=== PATIENT | female | born 1970 | race Caucasian/White ===

== ENCOUNTER 2016-07-21 10:16 | Inpatient (IN) | payer MEDICAID ==
[2016-07-21 10:53] LABS: % BASOPHILS 0.2 % (0.0-2.0); % EOSINOPHILS 6.9 % (0.0-5.0); % MONOCYTES 10.3 % (2.0-10.0); % NEUTROPHILS 69.6 % (40.0-80.0); HEMATOCRIT 36.6 % (35.0-45.0); HEMOGLOBIN 12.2 gm/dL (11.7-15.5); MEAN CELL VOLUME 79.7 fl (81-100); MEAN CORPUSCULAR HEMOGLOBIN 26.6 pg (27.0-31.0); MEAN CORPUSCULAR HGB CONC 33.3 pg (28.0-36.0); MEAN PLATELET VOLUME 10.7 fl; NEUTROPHILE ABSOLUTE 7.7 Th/cmm (1.8-8.0); PLATELET COUNT 175 Th/cmm (150-400); RED BLOOD COUNT 4.59 Mil/cmm (3.80-5.10); RED CELL DISTRIBUTION WIDTH 14.2 % (11.5-20.0)
[2016-07-21 11:08] LABS: ALB/GLOB RATIO 1.3 (1.0-1.8); ALKALINE PHOSPHATASE 74 U/L (34-104); ANION GAP 7.5 (7.0-16.0); BILIRUBIN,TOTAL 0.4 mg/dL (0.3-1.0); BUN - UREA NITROGEN 13 mg/dL (7-25); BUN/CREATININE RATIO 16.3; CALCIUM SERUM 9.5 mg/dL (8.6-10.3); CARBON DIOXIDE 25.2 mEq/L (21.0-31.0); CHLORIDE 105 mEq/L (98-107); CHOLESTEROL 156 mg/dL (<200); CREATININE - SERUM 0.8 mg/dL (0.6-1.2); GLUCOSE 86 mg/dL (70-105); POTASSIUM SERUM 3.7 mEq/L (3.5-5.1); SGOT 11 U/L (13-39); SGPT/ALT 11 U/L (7-52); SODIUM SERUM 134 mEq/L (136-145); TRIGLYCERIDES 204 mg/dL (<150)
--- NOTE | 2016-07-21 11:11 | ED Physician Chart ---
Chief Complaint/HPI - Patient Information Date Seen:: 07/21/16 Time Seen:: 10:40 Chief Complaint:: right leg infection History of Present Illness:: THIS IS A 46 YO FEMALE WITH A RED, SWOLLEN,TENDER RIGHT LOWER EXTREMITY THAT STARTED SEVERAL DAYS AGO. SHE IS NOT SURE WHETHER IT WAS AN INSECT BITE OR A RETURN OF MRSA INFECTION SHE HAD SOME TIME AGO. THIS PATIENT ALSO STATES THAT SHE IS CONCERNED ABOUT BEING EXPOSED TO A SEX DISEASE. SHE DENIES DIABETES, HYPERTENSION AND HEART DISEASE. SHE DENIES HAVING ANY OTHER AREAS OF A RASH OR SKIN LESION. SHE DENIES FEVER, SORE THROAT AND COUGH. Allergies:: Allergies Allergy/AdvReac Type Severity Reaction Status Date / Time acetaminophen [From Vicodin] Allergy Verified 07/21/16 10:27 hydrocodone [From Vicodin] Allergy Verified 07/21/16 10:27 Vitals:: Vital Signs - 8 hr 07/21/16 07/21/16 10:28 10:44 Temp 98.5 F 98.6 F HR 86 82 RR 16 18 BP 131/83 132/79 O2 Sat % 98 97 Historian:: Patient Review:: Nurse's Note Reviewed Review of Systems - Review of Systems General/Constitutional: No fever, No chills, No weight loss, No weakness, No diaphoresis, No edema, No loss of appetite Skin: Skin lesions (RIGHT LOWER LEG), No rash, No bruising Head: No headache, No light-headedness Eyes: No loss of vision, No pain, No diplopia ENT: No earache, No nasal drainage, No sore throat, No tinnitus Neck: No neck pain, No swelling, No thyromegaly, No stiffness, No mass noted Cardio Vascular: No chest pain, No palpitations, No PND, No orthopnea, No edema Pulmonary: No SOB, No cough, No sputum, No wheezing GI: No nausea, No vomiting, No diarrhea, No pain, No melena, No hematochezia, No constipation, No hematemesis G/U: No dysuria, No frequency, No hematuria Musculoskeletal: No bone or joint pain, No back pain, No muscle pain Endocrine: No polyuria, No polydipsia Psychiatric: No prior psych history, No depression, No anxiety, No suicidal ideation Hematopoietic: No bruising, No lymphadenopathy Allergic/Immuno: No urticaria, No angioedema Neurological: No syncope, No focal symptoms, No weakness, No paresthesia, No headache, No seizure, No dizziness, No confusion, No vertigo Past Medical History - Past Medical History Obtainable: Yes Past Medical History: No significant medical hx Family History: None Social History: Smoker, Alcohol, Illicit Drug Use Surgical History: Appendectomy Psychiatricy History: None Medication: Reviewed Family Medical History - Family Member Sister History Unknown: Yes Hx Family Cancer: No Hx Family Coronary Artery Disease: No Hx Family Congestive Heart Failure: No Hx Family Hypertension: No Hx Family Stroke: No Hx Family Diabetes: No Hx Family Seizures: No Hx Family Dementia: No Hx Family AIDS: No Hx Family COPD: No Hx Family Hepatitis: No Hx Family Psychiatric Problems: No Hx Family Tuberculosis: No Physical Exam - Physical Examination General/Constitutional: Awake, Well-developed, well-nourished, Alert, No distress, GCS 15, Non-toxic appearing, Ambulatory Head: Atraumatic Eyes: Lids, conjuctiva normal, PERRL, EOMI Skin: Nl inspection, No rash, No skin lesions, No ecchymosis, Well hydrated, No lymphadenopathy ENMT: External ears, nose nl, Nasal exam nl, Lips, teeth, gums nl Neck: Nontender, Full ROM w/o pain, No JVD, No nuchal rigidity, No bruit, No mass, No stridor Respiratory: Nl effort/Exclusion, Clear to Auscultation, No Wheeze/Rhonchi/Rales Cardio Vascular: RRR, No murmur, gallop, rubs, NL S1 S2 GI: No tenderness/rebounding/guarding, No organomegaly, No hernia, Normal BS's, Nondistended, No mass/bruits, No McBurney tenderness : No CVA tenderness Extremities: Full ROM, normal strength in all extremities, Normal digits & nails Other Extremities comments:: THE RIGHT DISTAL ANTERIOR LOWER LEG IS RED TENDER AND SWOLLEN. Neuro/Psych: Alert/oriented, DTR's symmetric, Normal sensory exam, Normal motor strength, Judgement/insight normal, Mood normal, Normal gait, No focal deficits Misc: normal gait, Normal back, No paraspinal tenderness Labs/Radiology/EKG Results - Lab Results Results: Laboratory Tests 07/21/16 10:43 WBC 11.0 H RBC 4.59 Hgb 12.2 Hct 36.6 MCV 79.7 L MCH 26.6 L MCHC Differential 33.3 RDW 14.2 Plt Count 175 MPV 10.7 Neutrophils % 69.6 Lymphocytes % 13.0 L Monocytes % 10.3 H Eosinophils % 6.9 H Basophils % 0.2 Assessment - Assessment General Assessment: THIS PATIENT HAS HAD MRSA IN THE PAST AND IT APPEARS THAT HER LEFT LOWER LEG HAS THE RED, HOT AND TENDERNESS OF A DEEP CELLULITIS. ED Septic Shock - . Is Septic Shock (SBP<90, OR Lactate>4 mmol\L) present?: No - <6hrs of presentation: Vital Signs: Vital Signs - 8 hr 07/21/16 07/21/16 10:28 10:44 Temp 98.5 F 98.6 F HR 86 82 RR 16 18 BP 131/83 132/79 O2 Sat % 98 97 Reassessment (Disposition) - Reassessment Reassessment Condition:: Unchanged - Diagnosis Diagnosis:: CELLULITIS OF THE RIGHT LOWER EXTREMITY - Patient Disposition Discharge/Transfer:: Acute Care w/in this hosp Admitting Medical Physician:: Rosendo Rodriguez Condition at Disposition:: Unchanged ED Discharge Plan - Patient Disposition Admit/Discharge/Transfer: Acute Care w/in this hosp Condition at Disposition: Unchanged
[2016-07-21 11:15] LABS: PROTHROMBIN TIME (TEST) 8.9 SECONDS (9.5-11.5)
[2016-07-21 11:25] LABS: INR 0.9 (0.5-1.4)
[2016-07-21] MEDS ORDERED: Sulfamethoxazole/TMP 800/160mg Tab PO ONE (11:47)
[2016-07-21] MEDS ORDERED: Sulfamethoxazole/TMP 800/160mg Tab ONE ×2 (11:55→12:06)
[2016-07-21 12:31] LABS: URINE COLOR YELLOW; URINE GLUCOSE (UA) NEGATIVE (NEGATIVE)
[2016-07-21 12:32] LABS: URINE BILIRUBIN NEGATIVE (NEGATIVE); URINE BLOOD TRACE (NEGATIVE); URINE KETONE NEGATIVE (NEGATIVE); URINE PROTEIN 30 mg/dL (NEGATIVE)
[2016-07-21 12:33] LABS: URINE UROBILINOGEN 0.2 E.U./dL (0.2 - 1.0)
[2016-07-21 12:34] LABS: URINE BACTERIA N /hpf (NONE SEEN); URINE EPITHELIAL CELLS FEW /lpf (FEW); URINE RBC 0-2 /hpf (0-5); URINE WBC 25-50 /hpf (0-5)
--- NOTE | 2016-07-21 13:00 | Diagnostic Imaging Report ---
CHEST X-RAY: AP view INDICATION: Cough COMPARISON: None FINDINGS: There is no focal consolidation or pleural effusions The heart is normal in size. The osseous structures demonstrate no acute abnormalities. IMPRESSION: No acute cardiopulmonary disease.
[2016-07-21] MEDS ORDERED: Sulfamethoxazole/TMP 800/160mg Tab PO SCH (15:00)
--- NOTE | 2016-07-21 15:15 | Admit Criteria Form ---
Admit Criteria Forms - Admit Criteria Diagnosis: CELLULITIS Clinical Indications for Admission to Inpatient Care (Place 'X' for any and all applicable criteria): Admission is indicated for ANY ONE of the following(1)(2)(3)(4)(5): [ ]I. Limb-threatening infection [ ]II. High-risk comorbid condition as indicated by ANY ONE of the following: [ ]a) Uncontrolled diabetes (eg, HbA1c greater than 10% (0.1)) [ ]b) Cirrhosis [ ]c) Neutropenia [ ]d) Asplenia [ ]e) Immunosuppression [ ]f) Symptomatic heart failure [ ]III. Failure of outpatient therapy as indicated by ALL of the following: [ ]a) Progression or no improvement after adequate trial (minimum of 48 hours, with longer period for stable lower extremity infection) [ ]b) Adequate antibiotic regimen as indicated by use of ANY ONE of the following: [ ]i) First-generation cephalosporin (e.g., cephalexin) [ ]ii) Antistaphylococcal penicillin (e.g., dicloxacillin) [ ]iii) Penicillin-allergic patient regimen (clindamycin, extended-spectrum fluoroquinolone, or doxycycline) [ ]iv) Resistant organism (eg, methicillin-resistant Staphylococcus aureus) regimen (6) [ ]c) Outpatient intravenous therapy regimen is not appropriate due to ANY ONE of the following. (7)(8)(9)(10): [ ]i) It was tried and was not successful (eg, progression of infection). [ ]ii) It is not available or cannot be arranged in a clinically appropriate time frame (e.g., the next day). [ ]iii) Clinical presentation (eg, acuity of infection, rapidity of progression, confirmed or suspected bacteremia) is judged to require ALL of the following: [ ]1) Immediate initiation of intravenous therapy ( eg, cannot wait for next day) [ ]2) Intensity of patient monitoring and observation (eg, vital sign measurement, checks for infection progression) that cannot be provided at other than inpatient level of care [ ]IV. Mental status changes [ ]V. Bacteremia [ ]. Hemodynamic instability [ ]VII. Suspected necrotizing soft tissue infection (e.g., gas in tissue)(11)( 12) [ ]VIII. Orbital infection (13)(14) [ ]IX. Associated surgical procedure (e.g., abscess drainage, debridement) not amenable to outpatient, emergency department, or observation care [ ]X. Cutaneous gangrene [ ]XI. High fever (temperature greater than 39.5 degrees C (103.1 degrees F) (oral)) not responsive to outpatient, emergency department, or observation care therapy [X]XIII. Inpatient admission required rather than observation care (Also use Cellulitis: Observation Care as appropriate) because of ANY ONE of the following : [ ]a) Periorbital or perineal infection that is severe or worsening [X]b) Severe pain requiring acute inpatient management [ ]c) IV fluid to replace significant ongoing (e.g., for over 24 hours) losses (greater than 3L/m2 per day) [ ]d) Compartment syndrome monitoring (17) [ ]e) Strict or protective (eg, laminar flow) isolation [ ]f) Urgent debridement or skin grafting [ ]g) Bone or joint debridement [ ]h) Immediate inpatient surgery [ ]i) Other condition, treatment or monitoring requiring inpatient admission Extended stay beyond goal length of stay may be needed for (1)(18): [ ]a) Necrotizing soft tissue infection or fasciitis [ ]b) Gram-negative infection [ ]c) Methicillin-resistant Staphylococcal aureus (MRSA) infection [ ]d) Peripheral venous insufficiency with cellulitis [ ]e) Extensive edema [ ]f) Sepsis or continued Hemodynamic instability [ ]g) Continued high fever or mental status change [ ]h) Bacteremia [ ]i) Active serious comorbid conditions ( eg, heart failure, renal insufficiency) The original [facility] content created by [employer] has been revised. The portions of the content which have been revised are identified through the use of italic text or in bold, and [facility] has neither reviewed nor approved the modified material. All other unmodified content is copyright [facility] Please see references footnoted in the original [facility] edition 2016
[2016-07-21] MEDS ORDERED: Sodium Chloride 0.9% 1,000 ML IV ONE (17:00)
[2016-07-21] MEDS ORDERED: Hydrocodone/APAP 5mg/325mg Tab PO PRN (18:47)
[2016-07-22 05:23] LABS: % LYMPHOCYTES 16.3 % (20.0-50.0); % MONOCYTES 9.9 % (2.0-10.0); % NEUTROPHILS 62.8 % (40.0-80.0); HEMATOCRIT 33.3 % (35.0-45.0); HEMOGLOBIN 11.3 gm/dL (11.7-15.5); MEAN CELL VOLUME 78.9 fl (81-100); MEAN CORPUSCULAR HEMOGLOBIN 26.7 pg (27.0-31.0); MEAN CORPUSCULAR HGB CONC 33.8 pg (28.0-36.0); NEUTROPHILE ABSOLUTE 6.1 Th/cmm (1.8-8.0); PLATELET COUNT 172 Th/cmm (150-400); RED BLOOD COUNT 4.23 Mil/cmm (3.80-5.10); RED CELL DISTRIBUTION WIDTH 14.4 % (11.5-20.0); WHITE BLOOD COUNT 9.5 Th/cmm (4.8-10.8)
[2016-07-22 05:48] LABS: ALB/GLOB RATIO 1.3 (1.0-1.8); ALKALINE PHOSPHATASE 64 U/L (34-104); ANION GAP 6.5 (7.0-16.0); BILIRUBIN,TOTAL 0.3 mg/dL (0.3-1.0); BUN - UREA NITROGEN 12 mg/dL (7-25); BUN/CREATININE RATIO 13.3; CALCIUM SERUM 8.4 mg/dL (8.6-10.3); CARBON DIOXIDE 24.3 mEq/L (21.0-31.0); CHLORIDE 109 mEq/L (98-107); CREATININE - SERUM 0.9 mg/dL (0.6-1.2); GLUCOSE 118 mg/dL (70-105); POTASSIUM SERUM 3.8 mEq/L (3.5-5.1); SGOT 10 U/L (13-39); SGPT/ALT 10 U/L (7-52); SODIUM SERUM 136 mEq/L (136-145)
[2016-07-22] MEDS ORDERED: Sulfamethoxazole/TMP 800/160mg Tab PO SCH (09:00)
[2016-07-22] MEDS ORDERED: cefTRIAXone 1 GM in Sodium Chloride 0.9% 50 ML IV ONE (09:00)
--- NOTE | 2016-07-22 09:08 | General Progress Note ---
Subjective - Review of Systems Service Date: 07/22/16 Subjective: Pain is less Objective - Results Result Diagrams: 07/22/16 04:55 07/22/16 04:55 Recent Labs: Laboratory Last Values WBC 9.5 Th/cmm (4.8-10.8) 07/22/16 04:55 RBC 4.23 Mil/cmm (3.80-5.10) 07/22/16 04:55 Hgb 11.3 gm/dL (11.7-15.5) L 07/22/16 04:55 Hct 33.3 % (35.0-45.0) L 07/22/16 04:55 MCV 78.9 fl (81-100) L 07/22/16 04:55 MCH 26.7 pg (27.0-31.0) L 07/22/16 04:55 MCHC Differential 33.8 pg (28.0-36.0) 07/22/16 04:55 RDW 14.4 % (11.5-20.0) 07/22/16 04:55 Plt Count 172 Th/cmm (150-400) 07/22/16 04:55 MPV 11.0 fl 07/22/16 04:55 Neutrophils % 62.8 % (40.0-80.0) 07/22/16 04:55 Lymphocytes % 16.3 % (20.0-50.0) L 07/22/16 04:55 Monocytes % 9.9 % (2.0-10.0) 07/22/16 04:55 Eosinophils % 10.0 % (0.0-5.0) H 07/22/16 04:55 Basophils % 1.0 % (0.0-2.0) 07/22/16 04:55 PT 8.9 SECONDS (9.5-11.5) L 07/21/16 10:43 INR 0.90 (0.5-1.4) 07/21/16 10:43 PTT (Actin FS) 22.7 SECONDS (26.0-38.0) L 07/21/16 10:43 Sodium 136 mEq/L (136-145) 07/22/16 04:55 Potassium 3.8 mEq/L (3.5-5.1) 07/22/16 04:55 Chloride 109 mEq/L (98-107) H 07/22/16 04:55 Carbon Dioxide 24.3 mEq/L (21.0-31.0) 07/22/16 04:55 Anion Gap 6.5 (7.0-16.0) L 07/22/16 04:55 BUN 12 mg/dL (7-25) 07/22/16 04:55 Creatinine 0.9 mg/dL (0.6-1.2) 07/22/16 04:55 Est GFR ( Amer) > 60.0 ml/min (>90) 07/22/16 04:55 Est GFR (Non-Af Amer) > 60.0 ml/min 07/22/16 04:55 BUN/Creatinine Ratio 13.3 07/22/16 04:55 Glucose 118 mg/dL (70-105) H 07/22/16 04:55 Calcium 8.4 mg/dL (8.6-10.3) L 07/22/16 04:55 Total Bilirubin 0.3 mg/dL (0.3-1.0) 07/22/16 04:55 AST 10 U/L (13-39) L 07/22/16 04:55 ALT 10 U/L (7-52) 07/22/16 04:55 Alkaline Phosphatase 64 U/L (34-104) 07/22/16 04:55 Total Protein 6.1 gm/dL (6.0-8.3) 07/22/16 04:55 Albumin 3.4 gm/dL (3.7-5.3) L 07/22/16 04:55 Globulin 2.7 gm/dL 07/22/16 04:55 Albumin/Globulin Ratio 1.3 (1.0-1.8) 07/22/16 04:55 Triglycerides 204 mg/dL (<150) H 07/21/16 10:43 Cholesterol 156 mg/dL (<200) 07/21/16 10:43 LDL Cholesterol Direct 83 mg/dL (75-193) 07/21/16 10:43 HDL Cholesterol 53 mg/dL (23-92) 07/21/16 10:43 TSH 1.42 uIU/ml (0.34-5.60) 07/21/16 10:43 Urine Source CLEAN C 07/21/16 11:40 Urine Color YELLOW 07/21/16 11:40 Urine Clarity CLEAR (CLEAR) 07/21/16 11:40 Urine pH 6.0 07/21/16 11:40 Ur Specific [place] 1.030 (1.005-1.030) 07/21/16 11:40 Urine Protein 30 mg/dL (NEGATIVE) H 07/21/16 11:40 Urine Glucose (UA) NEGATIVE mg/dL (NEGATIVE) 07/21/16 11:40 Urine Ketones NEGATIVE mg/dL (NEGATIVE) 07/21/16 11:40 Urine Blood TRACE (NEGATIVE) 07/21/16 11:40 Urine Nitrate NEGATIVE (NEGATIVE) 07/21/16 11:40 Urine Bilirubin NEGATIVE (NEGATIVE) 07/21/16 11:40 Urine Urobilinogen 0.2 E.U./dL (0.2 - 1.0) 07/21/16 11:40 Ur Leukocyte Esterase SMALL (NEGATIVE) H 07/21/16 11:40 Urine RBC 0-2 /hpf (0-5) 07/21/16 11:40 Urine WBC 25-50 /hpf (0-5) H 07/21/16 11:40 Ur Epithelial Cells FEW /lpf (FEW) 07/21/16 11:40 Urine Bacteria N /hpf (NONE SEEN) 07/21/16 11:40 Urine Test NEGATIVE 07/21/16 11:40 RPR NONREACTIVE (NONREACTIVE) 07/21/16 10:43 - Physical Exam Vitals and I&O: Vital Signs Temp 97.9 F 07/22/16 08:00 Pulse 66 07/22/16 08:00 Resp 19 07/22/16 08:00 BP 103/53 07/22/16 08:00 Pulse Ox 96 07/22/16 08:00 Intake & Output 07/21/16 07/22/16 07/22/16 18:59 06:59 18:59 Intake Total 300 1250 Balance 300 1250 Weight (lbs) 72.575 kg 72.575 kg Intake: Intake, IV Amount 1000 Sodium Chloride 0.9% 1, 1000 000 ml @ 100 mls/hr IV . Q10H ONE Rx#:[id number] Oral 300 250 Other: Stool Characteristics Soft Active Medications: Current Medications Gabapentin (Neurontin) 400 mg PO TID RUBEN Stop: 09/20/16 08:59 Ceftriaxone Sodium 1 gm/ (Sodium Chloride) 50 mls @ 100 mls/hr IV X1 [facility] Stop: 09/20/16 08:59 Naproxen (Naprosyn) 500 mg PO BIDWM RUBEN Stop: 09/20/16 07:59 Last Admin: 07/22/16 08:09 Dose: 500 mg Ondansetron HCl (Zofran) 4 mg IV Q6H PRN PRN Reason: Nausea / Vomiting Stop: 09/19/16 23:13 Pantoprazole Sodium (Protonix) 40 mg IVP DAILY RUBEN Stop: 09/19/16 18:59 Last Admin: 07/22/16 08:11 Dose: 40 mg Tramadol HCl (Ultram) 50 mg PO Q4HR [facility] Stop: 09/20/16 00:00 Last Admin: 07/22/16 08:10 Dose: 50 mg Trimethoprim/Sulfamethoxazole (Bactrim Ds) 1 tab PO BID [facility] Stop: 09/20/16 08:59 Last Admin: 07/22/16 08:11 Dose: 1 tab General: Alert, Oriented x3, Cooperative, No acute distress HEENT: Atraumatic Neck: Supple Cardiovascular: Regular rate Lungs: Clear to auscultation Abdomen: Bowel sounds, Soft Extremities: Other (There is some edema and redness above right internal ankle. ) Neurological: Normal gait Skin: Other (Redness of right leg above ankle) Psych/Mental Status: Mental status NL Assessment/Plan - Problem List Patient Problems: All Active Problems RIGHT LEG SWELLING AND REDNESS (Acute) - Assessment Assessment: Patient is awake, alert, calm, in no acute distress. Today WBC is normal. Dx: Cellulitis - Plan Plan: Patient is discharge as soon she receive IV AB. She will continue treatment with PCP. Prescription is given.
--- NOTE | 2016-07-22 10:54 | History & Physical ---
ADMIT DATE: 07/22/2016 CHIEF COMPLAINT: Redness and pain in the right lower extremity. HISTORY OF PRESENT ILLNESS: This is a case of a 46-year-old old female, who referred that 2 days ago started with redness and swelling of the lower right leg around ankle. The patient referred before that everything was fine. Due to the pain and redness, the patient came to Emergency Room for evaluation and treatment. PAST MEDICAL HISTORY: The patient denies diabetes, hypertension or any chronic illness. FAMILY HISTORY: Noncontributory. SOCIAL HISTORY: The patient is a smoker. Alcohol use, and she use illegal drugs. PAST SURGICAL HISTORY: Appendectomy. MEDICATIONS: Reviewed. ALLERGIES: NORCO AND VICODIN. REVIEW OF SYSTEMS: LUNGS: The patient denies shortness of breath. HEART: The patient denies chest pain. ABDOMEN: Unremarkable. EXTREMITIES: Pain and redness of the lower right leg. NEUROLOGICAL: Unremarkable. PHYSICAL EXAMINATION: GENERAL: Does reveal fairly nourished and developed female, awake, alert with some distress secondary to pain. HEENT: Head is normocephalic and atraumatic. Eyes: Pupils reactive to light. Nose: No evidence of nasal obstruction. Ears: No evidence of any discharge. Mouth: Fairly ____. LUNGS: Bilateral air entry. No wheezing, no crackles. HEART: Regular and rhythmic. ABDOMEN: Soft, nontender. Bowel sounds present. EXTREMITIES: There is full movement of all extremities. There is redness and some swelling of the lower right extremity about ankle. NEUROLOGICAL: The patient is awake, alert, oriented. Nerves 2-12 grossly intact. No neurological deficit at this moment. IMPRESSION: Cellulitis. PLAN: 1. The patient will be admitted in the Medical Surgical floor. 2. IV normal saline. 3. Pain control. 4. Ceftriaxone and Bactrim. 5. Regular diet. 6. CBC and CMP at a.m. [facility]# [id number]
[2016-07-22] MEDS ORDERED: cefTRIAXone 1 GM in Sodium Chloride 0.9% 50 ML IV SCH (16:00)
== END 2016-07-22 11:55 | disposition home or self-care (01) | DRG 383 ==
LOC: ER 10:16 → MSI 12:00
PROVIDERS: ADMIT General Practice; ATTEND General Practice
DX: L03.115 Cellulitis of right lower limb (principal); E87.1 Hypo-osmolality and hyponatremia; F17.210 Nicotine dependence, cigarettes, uncomplicated; Z90.49 Acquired absence of other specified parts of digestive tract; Z88.6 Allergy status to analgesic agent
CPT/HCPCS: 36415-UA; 71010-TC; 80053-TC; 80061-TC; 81001-TC; 81025-TC; 84443-TC; 85025-TC; 85610-TC; 85730-TC; 86592-TC; 87086-90; 93005; 96374; C9113; J0696; J7030

== ENCOUNTER 2016-12-04 22:37 | Emergency (ER) | payer MEDICAID ==
--- NOTE | 2016-12-04 23:08 | ED Physician Chart ---
ED Chief Complaint/HPI - Patient Information Date Seen:: 12/04/16 Time Seen:: 22:50 Chief Complaint:: redness both lower legs History of Present Illness:: Patient noted redness both lower legs this morning. No chills or fever. Patient had MRSA on her buttocks more than 15 years ago. Allergies:: Allergies Allergy/AdvReac Type Severity Reaction Status Date / Time acetaminophen [From Vicodin] Allergy Verified 12/04/16 22:51 hydrocodone [From Vicodin] Allergy Verified 12/04/16 22:51 Vitals:: Vital Signs - 8 hr 12/04/16 22:40 Temp 98.1 F HR 80 RR 20 BP 122/64 O2 Sat % 99 Historian:: Patient Review:: Nurse's Note Reviewed ED Review of Systems - Review of Systems General/Constitutional: No fever, No chills Skin: No skin lesions Head: No headache Eyes: No loss of vision ENT: No earache Neck: No neck pain Cardio Vascular: No chest pain, No palpitations Pulmonary: No SOB GI: No nausea, No vomiting G/U: No dysuria, No hematuria Musculoskeletal: No bone or joint pain Endocrine: No polyuria, No polydipsia Psychiatric: No prior psych history Hematopoietic: No bruising Allergic/Immuno: No urticaria Neurological: No syncope, No focal symptoms ED Past Medical History - Past Medical History Past Medical History: No significant medical hx Family History: HTN Social History: Smoker, Alcohol, Other (patient drinks alcohol occasionally) Surgical History: Psychiatricy History: None Medication: None Family Medical History - Family Member Sister History Unknown: Yes Ethnicity: Non- Hx Family Cancer: No Hx Family Coronary Artery Disease: No Hx Family Congestive Heart Failure: No Hx Family Hypertension: No Hx Family Stroke: No Hx Family Diabetes: No Hx Family Seizures: No Hx Family Dementia: No Hx Family AIDS: No Hx Family COPD: No Hx Family Hepatitis: No Hx Family Psychiatric Problems: No Hx Family Tuberculosis: No MOTHER History Unknown: Yes Living Status: Still Living Hx Family Cancer: Yes Hx Family Coronary Artery Disease: Yes Hx Family Congestive Heart Failure: No Hx Family Hypertension: Yes Hx Family Stroke: Yes Hx Family Diabetes: Yes Hx Family Seizures: No Hx Family Dementia: No GREAT GRANDMOTHER History Unknown: Yes Living Status: Hx Family Cancer: Yes Hx Family Hypertension: Yes Hx Family Diabetes: Yes ED Physical Exam - Physical Examination General/Constitutional: Well-developed, well-nourished, Alert, No distress Head: Atraumatic Eyes: Lids, conjuctiva normal, PERRL Other Skin comments:: 8 areas of circular erythema up to about 2 cm in diameter anterior both lower legs; erythema over lateral malleolus left ankle ENMT: External ears, nose nl, Nasal exam nl, Lips, teeth, gums nl, Oropharynx nl , Tonsils nl Neck: No nuchal rigidity Respiratory: Nl effort/Exclusion, Clear to Auscultation, No Wheeze/Rhonchi/Rales Cardio Vascular: RRR GI: No tenderness/rebounding/guarding, No organomegaly, Normal BS's, Nondistended : No CVA tenderness Extremities: No tenderness or effusion, Normal digits & nails Neuro/Psych: No focal deficits Misc: No paraspinal tenderness ED Assessment - Assessment General Assessment: The lower leg lesions look somewhat like insect bites but I could not see a spot in each lesion which would be the site of the bite. ED Septic Shock - . Is Septic Shock (SBP<90, OR Lactate>4 mmol\L) present?: No - <6hrs of presentation: Vital Signs: Vital Signs - 8 hr 12/04/16 22:40 Temp 98.1 F HR 80 RR 20 BP 122/64 O2 Sat % 99 ED Reassessment (Disposition) - Reassessment Reassessment Condition:: Unchanged - Diagnosis Diagnosis:: Cellulitis lower legs - Aftercare/Follow up Instructions Medication Prescribed:: Prescriptions for Keflex 500 mg 4 times a day for 10 days and Bactrim DS 1 twice a day for 10 days given. - Patient Disposition Discharge/Transfer:: Home Condition at Disposition:: Stable, Unchanged ED Discharge Plan - Patient Disposition Prescriptions: Cephalexin [Keflex] 500 mg PO QID #40 cap Sulfamethoxazole/Trimethoprim [Bactrim Ds Tablet] 1 tab PO BID #20 tab Instructions: Cellulitis
[2016-12-04] MEDS ORDERED: HYDROmorphone 1 mg/mL 1mL Syr IVP STA ×2 (23:26→23:44)
[2016-12-04] MEDS ORDERED: HYDROmorphone 1 mg/mL 1mL Syr ONE (23:33)
== END 2016-12-05 01:20 | disposition home or self-care (01) ==
LOC: ER 22:37
DX: L03.116 Cellulitis of left lower limb (principal); L03.115 Cellulitis of right lower limb; F17.200 Nicotine dependence, unspecified, uncomplicated
CPT/HCPCS: 99284; 96365; 96375; J3370; J1170; Z7502; Z7610

== ENCOUNTER 2017-01-04 12:42 | Emergency (ER) | payer MEDICAID ==
--- NOTE | 2017-01-04 13:13 | ED Physician Chart ---
ED Chief Complaint/HPI - Patient Information Date Seen:: 01/04/17 Time Seen:: 13:05 Chief Complaint:: Redness in R foot for 2 days. History of Present Illness:: Brought in by private auto for the above. Pt had similar condition about a month ago and was treated with antibiotic with resolution. Pt has noticed recurrent redness in R foot for 2 days. No fever. Taking po well without N/V/D. Pt denies any recent right foot injury and remains ambulatory without difficulty. Allergies:: Allergies Allergy/AdvReac Type Severity Reaction Status Date / Time acetaminophen [From Vicodin] Allergy Verified 12/04/16 22:51 hydrocodone [From Vicodin] Allergy Verified 12/04/16 22:51 Vitals:: see Nurse Note. Historian:: Patient Family MD/PCP:: unknown LMP:: About a month ago. Review:: Nurse's Note Reviewed ED Review of Systems - Review of Systems General/Constitutional: No fever, No chills, No weight loss, No edema, No loss of appetite Skin: No rash, No bruising Head: No headache, No light-headedness Eyes: No pain ENT: No earache, No nasal drainage, No sore throat Neck: No neck pain, No swelling, No stiffness Cardio Vascular: No chest pain, No palpitations, No edema Pulmonary: No SOB, No cough, No wheezing GI: No nausea, No vomiting, No diarrhea, No pain G/U: No dysuria, No frequency, No hematuria Tool Carrier: No vaginal discharge, No abnormal vaginal bleed Endocrine: No polyuria, No polydipsia Psychiatric: No prior psych history Hematopoietic: No bruising, No lymphadenopathy Allergic/Immuno: No urticaria, No angioedema Neurological: No syncope, No focal symptoms, No weakness, No paresthesia, No headache, No confusion ED Past Medical History - Past Medical History Past Medical History: No significant medical hx Family History: Heart disease (MGM, aunt.), Cancer (MGM) Social History: Smoker (Half pack daily. Pt has been informed about health risks associated with chronic tobacco use and has been advised to quit. Pt has been encouraged to enroll in a smoking cessation program. Pt acknowledges understanding.), Alcohol (Once a week. Pt has been informed about health risks associated with alcohol use and has been advised to quit. Pt acknowledges understanding.), No Drug Use, Single, Other (lives with her ex-boyfriend.) Employment:: unemployed. Surgical History: (x 2 with last one in .) Psychiatricy History: None Medication: None Family Medical History - Family Member Sister History Unknown: Yes Ethnicity: Non- Hx Family Cancer: No Hx Family Coronary Artery Disease: No Hx Family Congestive Heart Failure: No Hx Family Hypertension: No Hx Family Stroke: No Hx Family Diabetes: No Hx Family Seizures: No Hx Family Dementia: No Hx Family AIDS: No Hx Family COPD: No Hx Family Hepatitis: No Hx Family Psychiatric Problems: No Hx Family Tuberculosis: No MOTHER History Unknown: Yes Living Status: Still Living Hx Family Cancer: Yes Hx Family Coronary Artery Disease: Yes Hx Family Congestive Heart Failure: No Hx Family Hypertension: Yes Hx Family Stroke: Yes Hx Family Diabetes: Yes Hx Family Seizures: No Hx Family Dementia: No GREAT GRANDMOTHER History Unknown: Yes Living Status: Hx Family Cancer: Yes Hx Family Hypertension: Yes Hx Family Diabetes: Yes ED Physical Exam - Physical Examination General/Constitutional: Awake, Well-developed, well-nourished, Alert, No distress, GCS 15, Non-toxic appearing, Ambulatory Other Gen/Cons comments:: Breathes comfortably, speaks clearly, interacts normally, and ambulates without difficulty. Head: Atraumatic Eyes: Lids, conjuctiva normal Skin: No ecchymosis, Well hydrated, No lymphadenopathy Other Skin comments:: R foot shows erythema with minimal edema and warmth at lateral dorsum. No crepitus or open wound. No red streaking. Good ROM of all joints. No detectable motor/sensory/vascular deficit. Good distal capillary refill. ENMT: External ears, nose nl, Nasal exam nl, Oropharynx nl Neck: Nontender, Full ROM w/o pain, No nuchal rigidity, No mass, No stridor Respiratory: Nl effort/Exclusion, Clear to Auscultation, No Wheeze/Rhonchi/Rales Cardio Vascular: RRR, No murmur, gallop, rubs GI: No tenderness/rebounding/guarding, No organomegaly, Normal BS's, Nondistended, No mass/bruits Other GI comments:: Abdomen is obese but soft. Other Extremities comments:: see Skin exam. Neuro/Psych: Alert/oriented (oriented x 3), Judgement/insight normal, Mood normal, Normal gait, No focal deficits ED Septic Shock - . Is Septic Shock (SBP<90, OR Lactate>4 mmol\L) present?: No ED Reassessment (Disposition) - Reassessment Reassessment:: 1520 Pt overall feels much better. Lab results have been reviewed with pt. Pt requests to go home now and does not want further observation/management in hospital. Aftercare instructions have been given. Reassessment Condition:: Improved - Diagnosis Diagnosis:: Early R foot cellulitis, stable. - Aftercare/Follow up Instructions Aftercare/Follow-Up Instructions:: Refer to Discharge Instructions Notes:: May take Motrin 200 mg tab 3 tabs po q8h prn pain, not to take first dose at least 6 hours after Toradol was given here. F/U with Dr. Joseph or PCP of pt's choice in one day for recheck with repeat lab studies: CBC, BMP. Return to ER immediately if condition worsens or if any further questions/problems. Medication Prescribed:: Bactrim DS one tab po q12h for 10 days. D-20 R-0 - Patient Disposition Discharge/Transfer:: Home Time:: 15:30 Condition at Disposition:: Stable, Improved ED Discharge Plan - Patient Disposition Admit/Discharge/Transfer: PT DISCHARGED HOME Condition at Disposition: Stable Prescriptions: Sulfamethoxazole/TMP [Bactrim Ds] 1 tab PO Q12HR #20 tab Instructions: Cellulitis, [id number] Additional Instructions: DC home with antibiotic prescription. follow-up with primary MD tomorrow, 2016
[2017-01-04] MEDS ORDERED: Sulfamethoxazole/TMP 800/160mg Tab ONE (13:39)
[2017-01-04 13:43] LABS: % BASOPHILS 0.3 % (0.0-2.0); % EOSINOPHILS 9.8 % (0.0-5.0); % MONOCYTES 7.3 % (2.0-10.0); % NEUTROPHILS 60.6 % (40.0-80.0); HEMOGLOBIN 11.6 gm/dL (12-16); MEAN CELL VOLUME 77.8 fl (81-100); MEAN CORPUSCULAR HEMOGLOBIN 25.9 pg (27.0-31.0); MEAN CORPUSCULAR HGB CONC 33.3 pg (28.0-36.0); MEAN PLATELET VOLUME 10.1 fl; NEUTROPHILE ABSOLUTE 4.5 Th/cmm (1.8-8.0); PLATELET COUNT 181 Th/cmm (150-400); RED BLOOD COUNT 4.49 Mil/cmm (3.80-5.10); WHITE BLOOD COUNT 7.3 Th/cmm (4.8-10.8)
[2017-01-04] MEDS: Sulfamethoxazole/TMP 800/160mg Tab PO ONE (13:44)
[2017-01-04] MEDS: ceFAZolin 1 GM in Sodium Chloride 0.9% 50 ML IV ONE (13:44)
[2017-01-04 13:58] LABS: ANION GAP 8.3 (7.0-16.0); BUN - UREA NITROGEN 13 mg/dL (7-25); BUN/CREATININE RATIO 18.6; CALCIUM SERUM 9.1 mg/dL (8.6-10.3); CARBON DIOXIDE 24.3 mEq/L (21.0-31.0); CHLORIDE 108 mEq/L (98-107); CREATININE - SERUM 0.7 mg/dL (0.6-1.2); GLUCOSE 106 mg/dL (70-105); POTASSIUM SERUM 3.6 mEq/L (3.5-5.1); SODIUM SERUM 137 mEq/L (136-145)
[2017-01-04 14:15] VITALS: BP 140/67
== END 2017-01-04 15:40 | disposition home or self-care (01) ==
LOC: ER 12:42
DX: L03.115 Cellulitis of right lower limb (principal)
CPT/HCPCS: 99284; 96365; 96375; 36415; 85025; 80048; J1885; J0690 ×2; Z7502

== ENCOUNTER 2017-09-24 07:11 | Emergency (ER) | payer MEDICAID ==
--- NOTE | 2017-09-24 07:59 | ED Physician Chart ---
ED Chief Complaint/HPI - Patient Information Date Seen:: 09/24/17 Time Seen:: 07:35 Chief Complaint:: redness right foot History of Present Illness:: Patient had spontaneous onset of redness of the right foot 2 days ago. No chills or fever. Patient seen here 01/04/2017 for cellulitis of the right foot and prescribed Bactrim DS which made her itch. Allergies:: Allergies Allergy/AdvReac Type Severity Reaction Status Date / Time acetaminophen [From Vicodin] AdvReac VOMITING Verified 01/04/17 13:08 hydrocodone [From Vicodin] AdvReac VOMITING Verified 01/04/17 13:08 Vitals:: Vital Signs - 8 hr 09/24/17 07:35 Temp 97.7 F HR 88 RR 16 BP 120/69 O2 Sat % 98 Historian:: Patient ED Review of Systems - Review of Systems General/Constitutional: No fever, No chills, No weight loss, No weakness, No diaphoresis, No edema, No loss of appetite Skin: No skin lesions, No rash, No bruising, Other (see history and physical) Head: No headache, No light-headedness Eyes: No loss of vision, No pain, No diplopia ENT: No earache, No nasal drainage, No sore throat, No tinnitus Neck: No neck pain, No swelling, No thyromegaly, No stiffness, No mass noted Cardio Vascular: No chest pain, No palpitations, No PND, No orthopnea, No edema Pulmonary: No SOB, No cough, No sputum, No wheezing GI: No nausea, No vomiting, No diarrhea, No pain, No melena, No hematochezia, No constipation, No hematemesis G/U: No dysuria, No frequency, No hematuria Musculoskeletal: No bone or joint pain, No back pain, No muscle pain Endocrine: No polyuria, No polydipsia Psychiatric: No prior psych history, No depression, No anxiety, No suicidal ideation Hematopoietic: No bruising, No lymphadenopathy Allergic/Immuno: No urticaria, No angioedema Neurological: No syncope, No focal symptoms, No weakness, No paresthesia, No headache, No seizure, No dizziness, No confusion, No vertigo ED Past Medical History - Past Medical History Past Medical History: Other (abdominal pain) Family History: Heart disease, Cancer Social History: Smoker, Other (smokes 2-3 cigarettes a day and drinks alcohol occasionally) Surgical History: (2 C-sections) Psychiatricy History: None Medication: None Family Medical History - Family Member Sister History Unknown: Yes Ethnicity: Non- Hx Family Cancer: No Hx Family Coronary Artery Disease: No Hx Family Congestive Heart Failure: No Hx Family Hypertension: No Hx Family Stroke: No Hx Family Diabetes: No Hx Family Seizures: No Hx Family Dementia: No Hx Family AIDS: No Hx Family COPD: No Hx Family Hepatitis: No Hx Family Psychiatric Problems: No Hx Family Tuberculosis: No MOTHER History Unknown: Yes Living Status: Still Living Hx Family Cancer: Yes Hx Family Coronary Artery Disease: Yes Hx Family Congestive Heart Failure: No Hx Family Hypertension: Yes Hx Family Stroke: Yes Hx Family Diabetes: Yes Hx Family Seizures: No Hx Family Dementia: No GREAT GRANDMOTHER History Unknown: Yes Ethnicity: Non- Living Status: Hx Family Cancer: Yes Hx Family Hypertension: Yes Hx Family Diabetes: Yes ED Physical Exam - Physical Examination General/Constitutional: Awake, Well-developed, well-nourished, Alert, No distress, GCS 15, Non-toxic appearing, Ambulatory Head: Atraumatic Eyes: Lids, conjuctiva normal, PERRL, EOMI Skin: Nl inspection, No rash, No skin lesions, No ecchymosis, Well hydrated, No lymphadenopathy ENMT: External ears, nose nl, Nasal exam nl, Lips, teeth, gums nl Neck: Nontender, Full ROM w/o pain, No JVD, No nuchal rigidity, No bruit, No mass, No stridor Respiratory: Nl effort/Exclusion, Clear to Auscultation, No Wheeze/Rhonchi/Rales Cardio Vascular: RRR, No murmur, gallop, rubs, NL S1 S2 GI: No tenderness/rebounding/guarding, No organomegaly, No hernia, Normal BS's, Nondistended, No mass/bruits, No McBurney tenderness : No CVA tenderness Other Extremities comments:: Right foot mild erythema and dryness of the skin; no tinea noted between toes Neuro/Psych: Alert/oriented, DTR's symmetric, Normal sensory exam, Normal motor strength, Judgement/insight normal, Mood normal, Normal gait, No focal deficits Misc: Normal back, No paraspinal tenderness ED Septic Shock - . Is Septic Shock (SBP<90, OR Lactate>4 mmol\L) present?: No - <6hrs of presentation: Vital Signs: Vital Signs - 8 hr 09/24/17 07:35 Temp 97.7 F HR 88 RR 16 BP 120/69 O2 Sat % 98 ED Reassessment (Disposition) - Reassessment Reassessment Condition:: Unchanged - Diagnosis Diagnosis:: Cellulitis right foot - Aftercare/Follow up Instructions Aftercare/Follow-Up Instructions:: Refer to Discharge Instructions Medication Prescribed:: Clindamycin 300 mg 4 times a day for 10 days - Patient Disposition Discharge/Transfer:: Home Condition at Disposition:: Stable, Unchanged
== END 2017-09-24 10:15 | disposition home or self-care (01) ==
LOC: ER 07:11
DX: L03.115 Cellulitis of right lower limb (principal); F17.210 Nicotine dependence, cigarettes, uncomplicated; Z88.5 Allergy status to narcotic agent; Z98.890 Other specified postprocedural states
CPT/HCPCS: 99285; 96365; 96366; 96375; J3370; J1200

== ENCOUNTER 2018-07-27 11:17 | Emergency (ER) | payer MEDICAID ==
[2018-07-27] MEDS ORDERED: Morphine Sulfate 2 mg/mL 1mL Syr ONE (12:00)
[2018-07-27] MEDS: Morphine Sulfate 2 mg/mL 1mL Syr IM STA (12:01)
--- NOTE | 2018-07-27 13:37 | ED Physician Chart ---
ED Chief Complaint/HPI - Patient Information Date Seen:: 07/27/18 Time Seen:: 11:35 Chief Complaint:: Left Foot Pain History of Present Illness:: onset x 3 days of MS type left foot pain after an accidental injury 3 days NURSE COMPANION; pt Dx with Left Foot Fracture after receiving X-Rays at [facility] ER in [place], [place]; pt denies any other trauma, LOC, ALOC, AMS, H/As, decreased activity, visual or gait changes, weakness, dizziness, paresthesias, vertigo, neck pain, C/P, SOB, Abd. Pain, or urinary s/s; pt's last tetanus shot : < 5 years; UTD; LNMP: 07/24/18; pt denies Allergies:: Allergies Allergy/AdvReac Type Severity Reaction Status Date / Time acetaminophen [From Vicodin] AdvReac VOMITING Verified 01/04/17 13:08 hydrocodone [From Vicodin] AdvReac VOMITING Verified 01/04/17 13:08 Vitals:: Vital Signs - 8 hr 07/27/18 11:41 Temp 98.2 F HR 90 RR 16 BP 95/42 O2 Sat % 99 Historian:: Patient Review:: Nurse's Note Reviewed, Old Chart Reviewed ED Review of Systems - Review of Systems General/Constitutional: No fever, No chills, No weight loss, No weakness, No diaphoresis, No edema, No loss of appetite Skin: No skin lesions, No rash, No bruising Head: No headache, No light-headedness Eyes: No loss of vision, No pain, No diplopia ENT: No earache, No nasal drainage, No sore throat, No tinnitus Neck: No neck pain, No swelling, No thyromegaly, No stiffness, No mass noted Cardio Vascular: No chest pain, No palpitations, No PND, No orthopnea, No edema Pulmonary: No SOB, No cough, No sputum, No wheezing GI: No nausea, No vomiting, No diarrhea, No pain, No melena, No hematochezia, No constipation, No hematemesis G/U: No dysuria, No frequency, No hematuria, No nacturia Supervisor Lens Generating: No vaginal discharge, No abnormal vaginal bleed, No contraction Musculoskeletal: No bone or joint pain, No back pain, No muscle pain Endocrine: No polyuria, No polydipsia Psychiatric: No prior psych history, No depression, No anxiety, No suicidal ideation, No homicidal ideation, No auditory hallucination, No visual hallucination Hematopoietic: No bruising, No lymphadenopathy Allergic/Immuno: No urticaria, No angioedema Neurological: No syncope, No focal symptoms, No weakness, No paresthesia, No headache, No seizure, No dizziness, No confusion, No vertigo ED Past Medical History - Past Medical History Obtainable: Yes Past Medical History: No significant medical hx Family History: None Social History: Non Smoker, No Alcohol, No Drug Use, , Homeless Surgical History: None Psychiatricy History: None Medication: Reviewed Family Medical History - Family Member Sister History Unknown: Yes Ethnicity: Non- Hx Family Cancer: No Hx Family Coronary Artery Disease: No Hx Family Congestive Heart Failure: No Hx Family Hypertension: No Hx Family Stroke: No Hx Family Diabetes: No Hx Family Seizures: No Hx Family Dementia: No Hx Family AIDS: No Hx Family COPD: No Hx Family Hepatitis: No Hx Family Psychiatric Problems: No Hx Family Tuberculosis: No MOTHER History Unknown: Yes Living Status: Still Living Hx Family Cancer: Yes Hx Family Coronary Artery Disease: Yes Hx Family Congestive Heart Failure: No Hx Family Hypertension: Yes Hx Family Stroke: Yes Hx Family Diabetes: Yes Hx Family Seizures: No Hx Family Dementia: No GREAT GRANDMOTHER History Unknown: Yes Ethnicity: Non- Living Status: Hx Family Cancer: Yes Hx Family Hypertension: Yes Hx Family Diabetes: Yes ED Physical Exam - Physical Examination General/Constitutional: Awake, Well-developed, well-nourished, Alert, No distress, GCS 15, Non-toxic appearing, Ambulatory Head: Atraumatic Eyes: Lids, conjuctiva normal, PERRL, EOMI Skin: Nl inspection, No rash, No skin lesions, No ecchymosis, Well hydrated, No lymphadenopathy ENMT: External ears, nose nl, TM canals nl, Nasal exam nl, Lips, teeth, gums nl , Oropharynx nl, Tonsils nl Neck: Nontender, Full ROM w/o pain, No JVD, No nuchal rigidity, No bruit, No mass, No stridor Other Neck comments:: supple; no meningeal signs; no cervical tenderness; no bruits Respiratory: Nl effort/Exclusion, Clear to Auscultation, No Wheeze/Rhonchi/Rales Cardio Vascular: RRR, No murmur, gallop, rubs, NL S1 S2, Carotid/Femoral/Distal pulses equal bilaterally GI: No tenderness/rebounding/guarding, No organomegaly, No hernia, Normal BS's, Nondistended, No mass/bruits, No McBurney tenderness, Rectum exam nl Other GI comments:: no pulsatile masses : No CVA tenderness Extremities: No tenderness or effusion, Full ROM, normal strength in all extremities, No edema, Normal digits & nails Other Extremities comments:: + Left Foot Tenderness, swelling, and mild ecchymosis at the lateral proximal MT region with no loss of ROMs; no septic joints; full active ROMs of all joints ; no FBs; no cellulitis; no wounds; no FBs; Gait: WNL; no ligament instability; good motor, tendon, and sensory functions; good NV functions Neuro/Psych: Alert/oriented, DTR's symmetric, Normal sensory exam, Normal motor strength, Judgement/insight normal, Mood normal, Normal gait, No focal deficits Other Neuro/Psych comments:: no focal signs Misc: Normal back, No paraspinal tenderness ED Labs/Radiology/EKG Results - Radiology Results Comments:: X-Rays: deferred by pt ED Assessment - Procedures Informed Consent: Procedure/risk/benefits explained by MD: Yes Splint Care: Splint applied Post Procedure/Splint Exam: No Active Bleeding, Full Range of Motion, Neuro/ Vascular Exam Comments:: good NV functions; Splint to Left Ankle and Left Foot; Orthopedic Shoe to Left Foot; Crutches ED Septic Shock - . Is Septic Shock (SBP<90, OR Lactate>4 mmol\L) present?: No - <6hrs of presentation: Vital Signs: Vital Signs - 8 hr 07/27/18 11:41 Temp 98.2 F HR 90 RR 16 BP 95/42 O2 Sat % 99 ED Reassessment (Disposition) - Reassessment Reassessment:: pt is asymptomatic upon discharge Reassessment Condition:: Improved - Diagnosis Diagnosis:: Left Foot Pain; Left Foot Injury; Left Foot Fracture; Sprains and Strains; Left Foot Contusions - Aftercare/Follow up Instructions Aftercare/Follow-Up Instructions:: Counseled pt regarding lab results/diagnosis & need follow up, Refer to Discharge Instructions, Counseled pt & family regarding lab results/diagnosis & need follow up - Patient Disposition Discharge/Transfer:: Home Condition at Disposition:: Stable, Improved (RTER prn if existing s/s reoccur and/or get worse and/or any other new s/s occur; ACIs given for all above Dx; Refer to Orthopedist/Interline Clerk ALICIA; F/U with PMD in one day or prn; RTER prn if concerned)
== END 2018-07-27 12:50 | disposition home or self-care (01) ==
LOC: ER 11:17
DX: S92.902A Unspecified fracture of left foot, initial encounter for closed fracture (principal); S93.602A Unspecified sprain of left foot, initial encounter; S96.912A Strain of unspecified muscle and tendon at ankle and foot level, left foot, initial encounter; S90.32XA Contusion of left foot, initial encounter; Z88.6 Allergy status to analgesic agent; Z88.5 Allergy status to narcotic agent; X58.XXXA Exposure to other specified factors, initial encounter; Y93.89 Activity, other specified; Y92.89 Other specified places as the place of occurrence of the external cause; Y99.8 Other external cause status
CPT/HCPCS: 99283; 96372 ×2; J2270; J1200; Z7502